=== PATIENT | female | born 1975 | race Caucasian/White ===

== ENCOUNTER 2019-02-11 14:18 | Emergency (ER) | payer OTHER ==
[~2019-02-11] VITALS: Ht 160 cm; Wt 108.0 kg
[2019-02-11] MEDS ORDERED: LOSARTAN-HCTZ1 EACH PO (14:53)
[2019-02-11] MEDS ORDERED: SYNTHROID175 MCG PO (14:54)
== END 2019-02-11 21:14 | disposition home or self-care (01) ==
LOC: ER 14:18
DX: K52.9 Noninfective gastroenteritis and colitis, unspecified (principal)

== ENCOUNTER 2024-09-10 11:37 | Emergency (ER) | payer OTHER ==
[~2024-09-10] VITALS: Ht 160 cm; Wt 108.9 kg
[~2024-09-10 11:37] MED LIST: LOSARTAN-HCTZ1 EACH PO; SYNTHROID175 MCG PO
[2024-09-10 12:29] VITALS: BP 141/83; O2SAT 99
[2024-09-10] MEDS ORDERED: ARMOUR THYROID120 M1 PO (12:29)
[2024-09-10] MEDS ORDERED: ORPHENADRINE CITRATE 30 MG/ML AMPUL IM STA (13:42)
[2024-09-10] MEDS ORDERED: KETOROLAC TROMETHAMINE 60 MG VIAL IM STA (13:42)
[2024-09-10] MEDS ORDERED: ORPHENADRINE CITRATE 30 MG/ML AMPUL ONE (13:48)
[2024-09-10] MEDS ORDERED: KETOROLAC TROMETHAMINE 60 MG VIAL IM ONE (13:49)
== END 2024-09-10 14:49 | disposition home or self-care (01) ==
LOC: ER 11:39
DX: M54.2 Cervicalgia (principal); I10 Essential (primary) hypertension; E03.9 Hypothyroidism, unspecified